=== PATIENT | female | born 1980 | race African-American/Black ===

== ENCOUNTER 2020-12-28 15:12 | Emergency (ER) | payer OTHER ==
[~2020-12-28 15:12] MED LIST: CEFUROXIME250 MG PO
[2020-12-28 19:02] LABS: HEMOGLOBIN 12.5 gm/dl (12.3-15.3); RED BLOOD COUNT 4.62 M/UL (4.00-5.10); WHITE BLOOD COUNT 10.7 K/UL (4.5-11.0)
[2020-12-28 19:23] LABS: BUN/CREATININE RATIO 11 (0-10)
[2020-12-28] MEDS ORDERED: ZOFRAN ODT 4 MG4 MG PO (20:47)
[2020-12-28] MEDS ORDERED: OMNICEF 300 MG300 MG PO (20:47)
== END 2020-12-28 21:53 | disposition home or self-care (01) ==
LOC: ER1 15:12
PROVIDERS: Emergency Medicine
DX: R55 Syncope and collapse (principal); N39.0 Urinary tract infection, site not specified; I10 Essential (primary) hypertension; Z88.2 Allergy status to sulfonamides
CPT/HCPCS: 71045; 80053; 81001; 82550; 82553; 82962; 83690; 83874; 83880; 84484; 85025; 93005; 99285; J7030